=== PATIENT | female | born 1965 | race Caucasian/White ===

== ENCOUNTER 2024-12-21 13:18 | Emergency (ER) | payer BC, SELFPAY ==
[2024-12-21 13:42] VITALS: BP 133/66; PULSE 72; RESP 17; TEMP 36.5; O2SAT 99; BMI 22.6
--- NOTE | 2024-12-21 13:47 | DI.RAD.S_ITS ---
PROCEDURE: XR HIP W PEL IF DONE LT 2V INDICATIONS: pain TECHNIQUE: AP pelvis with lateral view(s) of the left hip(s). COMPARISON: None. FINDINGS: No acute fracture or dislocation. No pelvic ring disruption. The hip joints, sacroiliac joints, and pubic symphysis are preserved. Pelvic phleboliths. Minimal CAM morphology of the left proximal femur. IMPRESSION: 1. No acute fracture or dislocation of the pelvis or left hip. 2. Minimal CAM morphology of the left proximal femur, which may contribute to femoroacetabular impingement. Nonemergent MRI left hip without contrast could be performed for evaluation. Dictated by: Aydin Mata M.D. on 12/21/2024 at 13:18 Approved by: Aydin Mata M.D. on 12/21/2024 at 13:19
--- NOTE | 2024-12-21 16:26 | ED_ITS ---
HPI - Extremity Problem <Reina Vidal PA-C - Last Filed: 12/21/24 16:42> General Chief complaint: Extremity Problem,Nontraumatic Stated complaint: LT hip pain; painful to walk Time Seen by Provider: 12/21/24 15:56 Source: patient Mode of arrival: Ambulatory History of Present Illness HPI Narrative: Ms. Ram is a very pleasant 59-year-old female with a past medical history of prior right hip and labrum issues who presents to the emergency department for left hip pain that started last night. Patient states while she was sleeping last night she started developing sharp pain in the anterior left hip w orse with certain movements starting to spread down the leg. Reports that this is making it difficult to walk. 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 Denies any trauma to the hip, she is still able to walk but with pain. No fevers chills or other concerns. No medications prior to arrival. She does live on one of the [facility] in his hoping for discharge soon as possible. Related Data Allergies Allergy/AdvReac Type Severity Reaction Status Date / Time No Known Drug Allergies Allergy Verified 12/21/24 13:42 Review of Systems <Reina Vidal PA-C - Last Filed: 12/21/24 16:42> Review of Systems ROS Unobtainable: All systems reviewed & are unremarkable except as noted in HPI and below Patient History <Reina Vidal PA-C - Last Filed: 12/21/24 16:42> Medical History No significant medical problems Social History Smoking Status: Never smoker Smoking Status: Never smoker Exam <Reina Vidal PA-C - Last Filed: 12/21/24 16:42> Narrative Exam Narrative: GENERAL: 59 year old patient appears stated age. Well-developed patient, in no acute distress. HEAD: Atraumatic. Normocephalic. RESPIRATORY: ?Nonlabored respirations. ?Speaking in clear, full sentences. EXTREMITIES: Subjective pain in anterior left hip/proximal femur but no reproducible tenderness or deformities. No swelling of bilateral lower extremities, no color change. BACK: No midline spinal tenderness. NEURO: AOx3. ?Clear speech. Sensation intact to light touch on distal lower extremities. SKIN: No rash or erythema of visible areas Initial Vital Signs Initial Vital Signs: Vital Signs Temperature 97.7 F 12/21/24 13:42 Pulse Rate 72 12/21/24 13:42 Respiratory Rate 17 12/21/24 13:42 Blood Pressure 133/66 12/21/24 13:42 Pulse Oximetry 99 12/21/24 13:42 Oxygen Delivery Method Room Air 12/21/24 13:42 <Bart Lund MD - Last Filed: 12/21/24 20:22> Initial Vital Signs Initial Vital Signs: Vital Signs Temperature 97.7 F 12/21/24 13:42 Pulse Rate 72 12/21/24 13:42 Respiratory Rate 17 12/21/24 13:42 Blood Pressure 133/66 12/21/24 13:42 Pulse Oximetry 99 12/21/24 13:42 Oxygen Delivery Method Room Air 12/21/24 13:42 Course <Reina Vidal PA-C - Last Filed: 12/21/24 16:42> Orders Ordered: ED Orders 12/21/24 13:47 XR hip w pel if done LT 2V Stat Vital Signs Vital signs: Vital Signs - 8 hr 12/21/24 13:42 12/21/24 16:41 Temperature 97.7 F Pulse Rate 72 71 Respiratory Rate 17 16 Blood Pressure 133/66 131/76 Pulse Oximetry 99 100 Oxygen Delivery Method Room Air Room Air <Bart Lund MD - Last Filed: 12/21/24 20:22> Orders Ordered: ED Orders 12/21/24 13:47 XR hip w pel if done LT 2V Stat Vital Signs Vital signs: Vital Signs - 8 hr 12/21/24 13:42 12/21/24 16:41 Temperature 97.7 F Pulse Rate 72 71 Respiratory Rate 17 16 Blood Pressure 133/66 131/76 Pulse Oximetry 99 100 Oxygen Delivery Method Room Air Room Air MDM - Extremity (Nontraumatic) <Reina Vidal PA-C - Last Filed: 12/21/24 16:42> MDM Narrative Medical decision making narrative: 59-year-old female with a past medical history of prior right hip and labrum issues who presents to the emergency department for left hip pain that started last night. Differential diagnosis includes but is not limited to sprain, strain, fracture, radiculopathy, etc. On exam the patient is in no acute distress, nontoxic-appearing, all vital signs within normal limits. She is ambulatory. She received left hip x-ray in triage. At my time of examination, she is requesting discharge to make a [place] in order to go back home. We reviewed her x-ray imaging which reveals minimal cam morphology of the left proximal femur, which may contribute to femoral acetabular impingement. Nonemergent MRI left hip without contrast could be performed for evaluation. There is no acute fracture dislocation of the pelvis or left hip. After discussing results with the patient, she states that she believes she would the same thing in the prior of her right hip. Discussed supportive care of rest, NSAIDs, stretching, follow up with Orthopedics for further evaluation/imaging and potential physical therapy. I did offer patient pain management including Toradol however she declines at this time and instead would like to discharge to make her very. She verbalized understanding of all information agreeable with the plan. Legs are neurovascularly intact. She is ambulatory and stable for discharge home. Discharge Plan Departure Patient Disposition: Home Clinical Impression: Femoroacetabular impingement of left hip Instructions: DI for Hip Pain Activity Restrictions/Additional Instructions: Today your x-ray revealed minimal cam morphology of the left proximal femur which may contribute to femoroacetabular impingement. It is very important to follow up with the primary care doctor and an orthopedic surgeon for more advanced imaging and further evaluation. You will likely benefit from physical therapy in addition to rest, ibuprofen or naproxen and acetaminophen. You may call to schedule an appointment with [facility]. Please take Ibuprofen (Motrin/Advil) or Acetaminophen (Tylenol) for pain. These are available over the counter. You may take Ibuprofen 600 mg every 8 hours with food for pain. You may also take Acetaminophen 650 mg every 4-6 hours for pain. Do not exceed 3000 mg of Tylenol a day as this can cause liver damage. Do not drink alcohol with either of these medications. Please follow up with your primary care doctor within the next 2-3 days for ER follow-up. (If you do not have a PCP you can call [phone]. ?to schedule an appointment with an [facility] Primary Care Provider) IF YOU DEVELOP ANY NEW OR WORSENING SYMPTOMS, RETURN TO THE ER! Please read the attached instructions, they highlight more specific treatments and interventions for you at home. Thank you for letting me participate in your care, Reina Vidal PA-C Referrals: Miscellaneous,Doctor, [Primary Care Provider] - Matthew Menon MD [Physician] - (Left minimal cam morphology, femoroacetabular impingement) Stand Alone Forms: Patient Portal/API/Survey ED Sign-out <Bart Lund MD - Last Filed: 12/21/24 20:22> Cosign ED Attending Cosignature Attestation: I was immediately available in the department for consultation. This documentation has been reviewed and I agree with assessment and plan. Supervised by Bart Lund MD
[2024-12-21 16:41] VITALS: BP 131/76; PULSE 71; RESP 16; O2SAT 100
== END 2024-12-21 16:40 | disposition home or self-care (01) ==
PROVIDERS: Emergency Provider Physician Assistant
DX: M25.852 Other specified joint disorders, left hip (principal)
CPT/HCPCS: 73502; 99281; 99283